=== PATIENT | female | born 2000 | race Caucasian/White ===

== ENCOUNTER 2018-05-06 18:20 | Emergency (ER) | payer OTHER | END 2018-05-06 19:23 | disposition home or self-care (01) | LOC: M ED 18:20 | DX: L65.8 Other specified nonscarring hair loss (principal); L23.89 Allergic contact dermatitis due to other agents; F41.9 Anxiety disorder, unspecified; Z79.899 Other long term (current) drug therapy | CPT/HCPCS: 99282 ==

== ENCOUNTER 2018-05-08 02:14 | Inpatient (IN) | payer OTHER ==
[2018-05-08 02:37] LABS: BEDSIDE GLUCOSE 89 MG/DL (70-105)
[2018-05-08 02:39] LABS: BASO % 0.5 % (0.0-1.0); EOS # 0.1 10^3/uL (0.0-0.50); HEMATOCRIT 43.5 % (36.0-47.0); HEMOGLOBIN 14.4 g/dl (12.0-15.5); IMMATURE GRANULOCYTE % 0.4 % (0-3.0); LYMPH # 1.5 10^3/uL (1.5-6.5); LYMPH % 17.8 % (24.0-44.0); MEAN CORPUSCULAR HEMOGLOBIN 30.1 pg (27.0-33.0); MEAN CORPUSCULAR HGB CONC 33.1 g/dl (32.0-36.5); MEAN CORPUSCULAR VOLUME 90.8 fl (80.0-96.0); MONO # 0.6 10^3/uL (0.0-0.8); MONO % 7.5 % (0.0-5.0); NEUTROPHILS % 72.8 % (36.0-66.0); PLATELET COUNT, AUTOMATED 313 10^3/uL (150-450); RED BLOOD COUNT 4.79 10^6/uL (4.00-5.40); RED CELL DISTRIBUTION WIDTH 12.2 % (11.5-14.5); WHITE BLOOD COUNT 8.3 10^3/uL (4.0-10.0)
[2018-05-08 03:01] LABS: ABG HCO3 23.3 MEQ/L (22.0-26.0); ABG O2 SATURATION 98.5 % (95.0-99.0); ABG PARTIAL PRESSURE O2 106.6 mmHg (75.0-100.0); ABG STANDARD HCO3 24.5 MEQ/L (22.0-26.0); ABG TOTAL CO2 24.3 MEQ/L (22.0-29.0); ABG pH (ARTERIAL) 7.453 UNITS (7.350-7.450); CONTROL LINE HCG INT CTR LINE PRESENT; HCG, SERUM QUALITATIVE NEGATIVE (NEGATIVE)
[2018-05-08 03:10] LABS: OSMOLALITY SERUM 292 MOSM/KG (275-295)
[2018-05-08 03:24] LABS: ALBUMIN 4.9 GM/DL (3.2-5.2); ALBUMIN/GLOBULIN RATIO 1.63 (1.00-1.93); ALKALINE PHOSPHATASE 57 U/L (45-117); ALT/SGPT 14 U/L (12-78); ANION GAP 10 MEQ/L (8-16); AST/SGOT 17 U/L (7-37); BILIRUBIN,DIRECT < 0.1 MG/DL (0.0-0.2); BILIRUBIN,TOTAL 2.8 MG/DL (0.2-1.0); BLOOD UREA NITROGEN 15 MG/DL (7-18); CALCIUM LEVEL 8.2 MG/DL (8.5-10.1); CARBON DIOXIDE LEVEL 28 MEQ/L (21-32); CHLORIDE LEVEL 104 MEQ/L (98-107); CPK CREATINE PHOSPHOKINASE 137 U/L (26-192); CREATININE FOR GFR 0.93 MG/DL (0.55-1.30); GLUCOSE, FASTING 93 MG/DL (70-100); POTASSIUM SERUM 3.7 MEQ/L (3.5-5.1); SALICYLATE LEVEL < 1.7 MG/DL (5.0-30.0); SODIUM LEVEL 142 MEQ/L (136-145); TOTAL PROTEIN 7.9 GM/DL (6.4-8.2)
[2018-05-08 03:25] LABS: ACETAMINOPHEN LEVEL < 2.0 UG/ML (10.0-30.0); ETHYL ALCOHOL (ETHANOL) < 0.003 % (0.000-0.010)
[2018-05-08 04:17] LABS: AMPHETAMINES LEVEL URINE NEGATIVE (NEGATIVE); BARBITURATES URINE NEGATIVE (NEGATIVE); BENZODIAZEPINES URINE NEGATIVE (NEGATIVE); CANNABINOIDS URINE NEGATIVE (NEGATIVE); COCAINE METABOLITE URINE NEGATIVE (NEGATIVE); METHADONE URINE NEGATIVE (NEGATIVE); OPIATES URINE NEGATIVE (NEGATIVE); PHENCYCLIDINE URINE NEGATIVE (NEGATIVE)
[2018-05-08] MEDS: NS 1,000 ML IV ×3 (04:30→20:31)
[2018-05-08] MEDS: D5W/0.45% SODIUM CHLORIDE 1,000 ML IV (07:30)
[2018-05-08] MEDS: ENOXAPARIN 40 MG/0.4 ML SYRINGE (J1650) SC (12:30)
[2018-05-09 05:40] LABS: MEAN CORPUSCULAR HEMOGLOBIN 29.8 pg (27.0-33.0); MEAN CORPUSCULAR HGB CONC 32.2 g/dl (32.0-36.5); MEAN CORPUSCULAR VOLUME 92.5 fl (80.0-96.0); PLATELET COUNT, AUTOMATED 267 10^3/uL (150-450); RED BLOOD COUNT 3.89 10^6/uL (4.00-5.40); RED CELL DISTRIBUTION WIDTH 12.9 % (11.5-14.5); WHITE BLOOD COUNT 9.3 10^3/uL (4.0-10.0)
[2018-05-09 05:44] LABS: HEMOGLOBIN 11.6 g/dl (12.0-15.5)
[2018-05-09 06:05] LABS: ANION GAP 7 MEQ/L (8-16); BLOOD UREA NITROGEN 15 MG/DL (7-18); CARBON DIOXIDE LEVEL 25 MEQ/L (21-32); CHLORIDE LEVEL 113 MEQ/L (98-107); CREATININE FOR GFR 0.93 MG/DL (0.55-1.30); GLUCOSE, FASTING 75 MG/DL (70-100); MAGNESIUM LEVEL 2.2 MG/DL (1.4-2.0); POTASSIUM SERUM 3.9 MEQ/L (3.5-5.1); SODIUM LEVEL 145 MEQ/L (136-145)
[2018-05-09] MEDS: NS 1,000 ML IV ×2 (06:38→16:16)
[2018-05-09] MEDS: ENOXAPARIN 40 MG/0.4 ML SYRINGE (J1650) SC (08:55)
[2018-05-09] MEDS: ONDANSETRON 4MG/2ML VIAL (J2405) IV (09:06)
[2018-05-10] MEDS: NS 1,000 ML IV ×2 (02:19→11:36)
[2018-05-10 05:15] LABS: HEMATOCRIT 35.9 % (36.0-47.0); HEMOGLOBIN 11.5 g/dl (12.0-15.5); MEAN CORPUSCULAR VOLUME 93.7 fl (80.0-96.0); PLATELET COUNT, AUTOMATED 257 10^3/uL (150-450); RED BLOOD COUNT 3.83 10^6/uL (4.00-5.40); RED CELL DISTRIBUTION WIDTH 12.9 % (11.5-14.5); WHITE BLOOD COUNT 5.2 10^3/uL (4.0-10.0)
[2018-05-10 05:49] LABS: ANION GAP 4 MEQ/L (8-16); BLOOD UREA NITROGEN 12 MG/DL (7-18); CALCIUM LEVEL 7.9 MG/DL (8.5-10.1); CARBON DIOXIDE LEVEL 26 MEQ/L (21-32); CHLORIDE LEVEL 113 MEQ/L (98-107); CREATININE FOR GFR 0.85 MG/DL (0.55-1.30); GLUCOSE, FASTING 100 MG/DL (70-100); MAGNESIUM LEVEL 2.2 MG/DL (1.4-2.0); POTASSIUM SERUM 4.4 MEQ/L (3.5-5.1); SODIUM LEVEL 143 MEQ/L (136-145)
[2018-05-10] MEDS: ENOXAPARIN 40 MG/0.4 ML SYRINGE (J1650) SC (09:31)
[2018-05-11 05:17] LABS: HEMATOCRIT 37.3 % (36.0-47.0); HEMOGLOBIN 12.1 g/dl (12.0-15.5); MEAN CORPUSCULAR HEMOGLOBIN 29.5 pg (27.0-33.0); MEAN CORPUSCULAR HGB CONC 32.4 g/dl (32.0-36.5); PLATELET COUNT, AUTOMATED 288 10^3/uL (150-450); RED CELL DISTRIBUTION WIDTH 12.2 % (11.5-14.5); WHITE BLOOD COUNT 5.4 10^3/uL (4.0-10.0)
[2018-05-11 05:45] LABS: ANION GAP 7 MEQ/L (8-16); BLOOD UREA NITROGEN 10 MG/DL (7-18); CALCIUM LEVEL 8.5 MG/DL (8.5-10.1); CARBON DIOXIDE LEVEL 28 MEQ/L (21-32); CHLORIDE LEVEL 109 MEQ/L (98-107); CREATININE FOR GFR 0.75 MG/DL (0.55-1.30); GLUCOSE, FASTING 96 MG/DL (70-100); MAGNESIUM LEVEL 1.9 MG/DL (1.4-2.0); POTASSIUM SERUM 3.5 MEQ/L (3.5-5.1); SODIUM LEVEL 144 MEQ/L (136-145)
[2018-05-11] MEDS: ONDANSETRON 4MG/2ML VIAL (J2405) IV (07:46)
[2018-05-11] MEDS: ENOXAPARIN 40 MG/0.4 ML SYRINGE (J1650) SC (07:46)
[2018-05-11] MEDS ORDERED: MIRALAX *UNIT DOSE* 17GM PACKET PO (11:45)
[2018-05-11] MEDS: SENNA 8.6 MG TAB (SENOKOT) PO ×2 (12:09→20:50)
[2018-05-11 12:34] LABS: AMMONIA 20 uMOL/L (<32)
[2018-05-12 05:59] LABS: HEMATOCRIT 38.1 % (36.0-47.0); HEMOGLOBIN 12.3 g/dl (12.0-15.5); MEAN CORPUSCULAR HEMOGLOBIN 29.6 pg (27.0-33.0); MEAN CORPUSCULAR HGB CONC 32.3 g/dl (32.0-36.5); MEAN CORPUSCULAR VOLUME 91.6 fl (80.0-96.0); PLATELET COUNT, AUTOMATED 307 10^3/uL (150-450); RED BLOOD COUNT 4.16 10^6/uL (4.00-5.40); RED CELL DISTRIBUTION WIDTH 12.2 % (11.5-14.5); WHITE BLOOD COUNT 4.9 10^3/uL (4.0-10.0)
[2018-05-12 06:19] LABS: ANION GAP 6 MEQ/L (8-16); BLOOD UREA NITROGEN 14 MG/DL (7-18); CALCIUM LEVEL 8.4 MG/DL (8.5-10.1); CARBON DIOXIDE LEVEL 30 MEQ/L (21-32); CHLORIDE LEVEL 108 MEQ/L (98-107); GLUCOSE, FASTING 91 MG/DL (70-100); POTASSIUM SERUM 3.6 MEQ/L (3.5-5.1); SODIUM LEVEL 144 MEQ/L (136-145)
[2018-05-12] MEDS: SENNA 8.6 MG TAB (SENOKOT) PO (08:35)
[2018-05-12] MEDS: ENOXAPARIN 40 MG/0.4 ML SYRINGE (J1650) SC (08:36)
[2018-05-12] MEDS: ONDANSETRON 4MG/2ML VIAL (J2405) IV (12:47)
== END 2018-05-12 15:48 | DRG 918 ==
LOC: M ED 02:14 → M ED INP 10:53 → M PCU 12:02
DX: T39.312A Poisoning by propionic acid derivatives, intentional self-harm, initial encounter (principal); T43.292A Poisoning by other antidepressants, intentional self-harm, initial encounter; T65.892A Toxic effect of other specified substances, intentional self-harm, initial encounter

== ENCOUNTER 2018-05-12 15:57 | Inpatient (IN) | payer OTHER ==
[~2018-05-12 15:57] MED LIST: ACETAMINOPHEN TAB 650MG DOSE (2X325MG) PO; MAALOX 30 ML SUSP *UDC PO; MOM 30ML SUSPENSION UDC PO
[2018-05-13] MEDS ORDERED: hydrOXYzine 50 MG TAB PO (12:45)
[2018-05-13] MEDS: PILL CRUSHER/CUTTER 1 EACH XX ×2 (13:15→21:27)
[2018-05-13] MEDS: ONDANSETRON 4 MG TAB (S0181) PO (13:15)
[2018-05-13] MEDS: FLUoxetine 10 MG CAP PO (13:57)
[2018-05-13] MEDS: traZODone 50 MG TAB PO (21:27)
[2018-05-14] MEDS: FLUoxetine 10 MG CAP PO (09:03)
[2018-05-15] MEDS: ONDANSETRON 4 MG TAB (S0181) PO (09:17)
[2018-05-15] MEDS: FLUoxetine 10 MG CAP PO (09:17)
[2018-05-16] MEDS: FLUoxetine 10 MG CAP PO (08:38)
[2018-05-16] MEDS: ONDANSETRON 4 MG TAB (S0181) PO (08:39)
[2018-05-17] MEDS: FLUoxetine 10 MG CAP PO (09:01)
[2018-05-17] MEDS ORDERED: DOCUSATE SODIUM 100 MG CAP PO (13:00)
[2018-05-18] MEDS: FLUoxetine 20 MG CAP PO (09:35)
[2018-05-19] MEDS: FLUoxetine 20 MG CAP PO (09:30)
[2018-05-20] MEDS: FLUoxetine 10 MG CAP PO (08:18)
[2018-05-20] MEDS: traZODone 50 MG TAB PO (21:34)
[2018-05-21] MEDS: FLUoxetine 10 MG CAP PO (08:30)
[2018-05-21] MEDS: traZODone 50 MG TAB PO (20:59)
[2018-05-22] MEDS: FLUoxetine 10 MG CAP PO (09:37)
[2018-05-23] MEDS: FLUoxetine 10 MG CAP PO (04:38)
== END 2018-05-23 05:23 | DRG 885 ==
LOC: M PSY 15:57
DX: F32.3 Major depressive disorder, single episode, severe with psychotic features (principal)

== ENCOUNTER 2018-06-22 16:51 | Inpatient (IN) | payer OTHER ==
[2018-06-22 18:29] LABS: HEMATOCRIT 39.8 % (36.0-47.0); HEMOGLOBIN 13.1 g/dl (12.0-15.5); MEAN CORPUSCULAR HEMOGLOBIN 30.3 pg (27.0-33.0); MEAN CORPUSCULAR HGB CONC 32.9 g/dl (32.0-36.5); MEAN CORPUSCULAR VOLUME 91.9 fl (80.0-96.0); PLATELET COUNT, AUTOMATED 366 10^3/uL (150-450); RED BLOOD COUNT 4.33 10^6/uL (4.00-5.40); RED CELL DISTRIBUTION WIDTH 12.6 % (11.5-14.5); WHITE BLOOD COUNT 9.8 10^3/uL (4.0-10.0)
[2018-06-22 18:51] LABS: CONTROL LINE HCG INT CTR LINE PRESENT; HCG, SERUM QUALITATIVE NEGATIVE (NEGATIVE)
[2018-06-22 19:00] LABS: ACETAMINOPHEN LEVEL < 2.0 UG/ML (10.0-30.0); ALBUMIN 4.2 GM/DL (3.2-5.2); ALBUMIN/GLOBULIN RATIO 1.31 (1.00-1.93); ALKALINE PHOSPHATASE 50 U/L (45-117); ALT/SGPT 29 U/L (12-78); ANION GAP 10 MEQ/L (8-16); AST/SGOT 21 U/L (7-37); BILIRUBIN,DIRECT 0.1 MG/DL (0.0-0.2); BILIRUBIN,TOTAL 0.5 MG/DL (0.2-1.0); BLOOD UREA NITROGEN 17 MG/DL (7-18); CARBON DIOXIDE LEVEL 25 MEQ/L (21-32); CHLORIDE LEVEL 106 MEQ/L (98-107); CREATININE FOR GFR 0.86 MG/DL (0.55-1.30); ETHYL ALCOHOL (ETHANOL) < 0.003 % (0.000-0.010); GLUCOSE, FASTING 95 MG/DL (70-100); SALICYLATE LEVEL < 1.7 MG/DL (5.0-30.0); SODIUM LEVEL 141 MEQ/L (136-145); THYROID STIMULATING HORMONE 0.509 uIU/ML (0.463-3.98); TOTAL PROTEIN 7.4 GM/DL (6.4-8.2)
[2018-06-22] MEDS: traZODone 50 MG TAB PO (20:35)
[2018-06-22 20:51] LABS: AMPHETAMINES LEVEL URINE NEGATIVE (NEGATIVE); BARBITURATES URINE NEGATIVE (NEGATIVE); BENZODIAZEPINES URINE NEGATIVE (NEGATIVE); CANNABINOIDS URINE NEGATIVE (NEGATIVE); COCAINE METABOLITE URINE NEGATIVE (NEGATIVE); METHADONE URINE NEGATIVE (NEGATIVE); OPIATES URINE NEGATIVE (NEGATIVE); PHENCYCLIDINE URINE NEGATIVE (NEGATIVE)
[2018-06-22] MEDS ORDERED: ACETAMINOPHEN TAB 650MG DOSE (2X325MG) PO (21:45)
[2018-06-22] MEDS ORDERED: MAALOX 30 ML SUSP *UDC PO (21:45)
[2018-06-22] MEDS ORDERED: MOM 30ML SUSPENSION UDC PO (21:45)
[2018-06-23] MEDS ORDERED: PILL CRUSHER/CUTTER 1 EACH XX (11:45)
[2018-06-23] MEDS: ESCITALOPRAM OXALATE 10 MG TAB (LEXAPRO) PO (22:04)
[2018-06-23] MEDS: ARIPiprazole 15 MG TAB (AbiLIFY) PO (22:04)
[2018-06-24] MEDS: ESCITALOPRAM OXALATE 10 MG TAB (LEXAPRO) PO (21:08)
[2018-06-24] MEDS: ARIPiprazole 15 MG TAB (AbiLIFY) PO (21:08)
[2018-06-24] MEDS: traZODone 50 MG TAB PO (21:09)
[2018-06-25] MEDS: ARIPiprazole 15 MG TAB (AbiLIFY) PO (21:00)
[2018-06-25] MEDS: ESCITALOPRAM OXALATE 10 MG TAB (LEXAPRO) PO (21:00)
[2018-06-26] MEDS: traZODone 50 MG TAB PO (20:33)
[2018-06-26] MEDS: ESCITALOPRAM OXALATE 10 MG TAB (LEXAPRO) PO (20:34)
[2018-06-26] MEDS: ARIPiprazole 15 MG TAB (AbiLIFY) PO (20:34)
[2018-06-27] MEDS: ARIPiprazole 15 MG TAB (AbiLIFY) PO (20:25)
[2018-06-27] MEDS: traZODone 50 MG TAB PO (20:25)
[2018-06-27] MEDS: ESCITALOPRAM OXALATE 10 MG TAB (LEXAPRO) PO (20:25)
[2018-06-28] MEDS: ARIPiprazole 15 MG TAB (AbiLIFY) PO (20:21)
[2018-06-28] MEDS: traZODone 50 MG TAB PO (20:22)
[2018-06-28] MEDS: ESCITALOPRAM OXALATE 10 MG TAB (LEXAPRO) PO (20:22)
[2018-06-29] MEDS: ESCITALOPRAM OXALATE 10 MG TAB (LEXAPRO) PO (21:33)
[2018-06-29] MEDS: traZODone 50 MG TAB PO (21:33)
[2018-06-29] MEDS: ARIPiprazole 15 MG TAB (AbiLIFY) PO (21:34)
[2018-06-30] MEDS ORDERED: hydrOXYzine 10 MG TAB PO (12:45)
[2018-06-30] MEDS: ESCITALOPRAM OXALATE 10 MG TAB (LEXAPRO) PO (20:12)
[2018-06-30] MEDS: traZODone 50 MG TAB PO (20:12)
[2018-06-30] MEDS: ARIPiprazole 10 MG TAB PO (20:12)
[2018-07-01] MEDS: ARIPiprazole 10 MG TAB PO (20:34)
[2018-07-01] MEDS: traZODone 50 MG TAB PO (20:34)
[2018-07-01] MEDS: ESCITALOPRAM OXALATE 10 MG TAB (LEXAPRO) PO (20:35)
[2018-07-02] MEDS: ESCITALOPRAM OXALATE 10 MG TAB (LEXAPRO) PO (20:26)
[2018-07-02] MEDS: ARIPiprazole 10 MG TAB PO (20:26)
[2018-07-02] MEDS: traZODone 50 MG TAB PO (20:26)
[2018-07-03] MEDS: ESCITALOPRAM OXALATE 10 MG TAB (LEXAPRO) PO (21:21)
[2018-07-03] MEDS: ARIPiprazole 10 MG TAB PO (21:21)
== END 2018-07-04 07:00 | disposition home or self-care (01) | DRG 885 ==
LOC: M PSY 06-26 22:07 → M ED 16:51 → M ED INP 21:34 → M PSY 22:47
DX: F33.3 Major depressive disorder, recurrent, severe with psychotic symptoms (principal); R45.851 Suicidal ideations; F41.9 Anxiety disorder, unspecified; G47.00 Insomnia, unspecified; Z79.899 Other long term (current) drug therapy

== ENCOUNTER 2018-10-01 22:08 | Inpatient (IN) | payer OTHER ==
[~2018-10-01] VITALS: Ht 165.1 cm; Wt 79.8 kg
[~2018-10-01 22:08] MED LIST changes: +ABIL1TAB11 PO; -ACETAMINOPHEN TAB 650MG DOSE (2X325MG) PO; +ARIP10TAB PO; +ARIP5TA PO; +CYPR4TA PO; +ESCI5SOL3 PO; +HYDR5CR TOP; +HYDRO50TAB PO; +LEXA1TAB PO; +LEXA1TAB2 PO; -MAALOX 30 ML SUSP *UDC PO; -MOM 30ML SUSPENSION UDC PO; +ONDA4TAB5 PO; +PROZ10CA7 PO; +TRAZ-160 PO; +TRAZO50TA PO
[2018-10-01] MEDS ORDERED: TRAZ-160 PO (22:17)
[2018-10-01 23:21] LABS: HEMOGLOBIN 13.1 g/dl (12.0-15.5); MEAN CORPUSCULAR HGB CONC 32.8 g/dl (32.0-36.5); MEAN CORPUSCULAR VOLUME 91.5 fl (80.0-96.0); PLATELET COUNT, AUTOMATED 323 10^3/uL (150-450); RED BLOOD COUNT 4.37 10^6/uL (4.00-5.40); WHITE BLOOD COUNT 9.2 10^3/uL (4.0-10.0)
[2018-10-02 00:10] LABS: ACETAMINOPHEN LEVEL < 2.0 UG/ML (10.0-30.0); ALBUMIN 3.9 GM/DL (3.2-5.2); ALT/SGPT 32 U/L (12-78); BILIRUBIN,DIRECT < 0.1 MG/DL (0.0-0.2); BILIRUBIN,TOTAL 0.2 MG/DL (0.2-1.0); BLOOD UREA NITROGEN 14 MG/DL (7-18); CALCIUM LEVEL 8.5 MG/DL (8.5-10.1); CARBON DIOXIDE LEVEL 28 MEQ/L (21-32); CHLORIDE LEVEL 103 MEQ/L (98-107); CREATININE FOR GFR 0.83 MG/DL (0.55-1.30); ETHYL ALCOHOL (ETHANOL) < 0.003 % (0.000-0.010); GLUCOSE, FASTING 122 MG/DL (70-100); POTASSIUM SERUM 4.3 MEQ/L (3.5-5.1); SALICYLATE LEVEL < 1.7 MG/DL (5.0-30.0); SODIUM LEVEL 139 MEQ/L (136-145); TOTAL PROTEIN 7.2 GM/DL (6.4-8.2)
[2018-10-02 00:13] LABS: HCG, SERUM QUALITATIVE NEGATIVE (NEGATIVE)
[2018-10-02 02:29] LABS: AMPHETAMINES LEVEL URINE NEGATIVE (NEGATIVE); BARBITURATES URINE NEGATIVE (NEGATIVE); BENZODIAZEPINES URINE NEGATIVE (NEGATIVE); CANNABINOIDS URINE NEGATIVE (NEGATIVE); COCAINE METABOLITE URINE NEGATIVE (NEGATIVE); METHADONE URINE NEGATIVE (NEGATIVE); OPIATES URINE NEGATIVE (NEGATIVE); PHENCYCLIDINE URINE NEGATIVE (NEGATIVE)
[2018-10-02] MEDS ORDERED: ESCI20TA PO (11:28)
[2018-10-02] MEDS ORDERED: ARIP1TAB PO (11:28)
[2018-10-02] MEDS ORDERED: TRAZ-160 PO (11:28)
[2018-10-02] MEDS ORDERED: MOM 30ML SUSPENSION UDC PO PRN (12:15)
[2018-10-02] MEDS ORDERED: MAALOX 30 ML SUSP *UDC PO PRN (12:15)
[2018-10-02] MEDS ORDERED: ACETAMINOPHEN TAB 650MG DOSE (2X325MG) PO PRN (12:15)
[2018-10-02 13:06] VITALS: BP 109/62
[2018-10-02 18:00] VITALS: BP 101/55
[2018-10-02] MEDS ORDERED: ESCITALOPRAM OXALATE 10 MG TAB (LEXAPRO) PO SCH (21:00)
[2018-10-02] MEDS ORDERED: traZODone 50 MG TAB PO SCH (21:00)
[2018-10-02] MEDS ORDERED: ARIPiprazole 10 MG TAB PO SCH (21:00)
--- NOTE | 2018-10-02 21:50 | ECGEPIP ---
Stationary ECG Study [facility] - ED Test Date: 2018-10-01 Pat Name: SOSA KEMP Department: Room: - Gender: F Pediatric Associate: FARZAD : 2000 Requested By: CHANDU Otto Order Number: [id number] Reading MD: Satya Kong Measurements Intervals [place] Rate: 68 P: 32 OK: 154 QRS: 72 QRSD: 110 T: 24 QT: 401 QTc: 428 Interpretive Statements SINUS RHYTHM WITH SINUS ARRHYTHMIA Intraventricular conduction delay Electronically Signed On 10-02-2018 21:49:58 EDT by Satya Kong
[2018-10-03 06:13] VITALS: BP 100/57
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
[2018-10-03] MEDS ORDERED: diphenhydrAMINE 25 MG CAP PO PRN (12:15)
[2018-10-03 18:00] VITALS: BP 116/71
[2018-10-03] MEDS: ARIPiprazole 15 MG TAB (AbiLIFY) PO SCH (21:35)
[2018-10-03] MEDS: ESCITALOPRAM OXALATE 10 MG TAB (LEXAPRO) PO SCH (21:36)
[2018-10-04 06:00] VITALS: BP 103/60
--- NOTE | 2018-10-04 10:42 | MHIPNPDOC ---
[facility] Progress Note Progress Note DATE OF SERVICE: 10/04/18 HISTORY: Patient is a 18 -year-old , AD, female, with a history of depression and multiple admissions to [facility] (last 06/2018) for SI or OD who was brought in by EMS after pt took 4 50mg tabs of trazodone then called her mother in [place] who told her to tell her roommate which she did and her roommate called [facility] that had pt brought to ED. In pt's room, MPs had found scattered tylenol tabs which pt denied taking. In ED, pt endorsed depression and SI for 1 wk, no known triggers, with a plan to also take "a cup of tylenol pills, about 50" but didn't b/c she got scared. Pt guarded in the ED and tearful. VITAL SIGNS: See below. NEW TEST RESULTS: See below. CURRENT MEDICATIONS: See below. MENTAL STATUS EXAMINATION: General Appearance: well groomed, appears stated age, own clothing Build: average Demeanor: average Eye Contact: fair Activity: average Behavior: cooperative, withdrawn, possibly being unreliable and manipulative for early d/c Speech: clear,normal volume Mood: depressed, anxious Mood "great" Affect: constricted, flat, anxious, incongruent Thought Process: depressed, intact Thought Content (Delusions): none reported, denies SI, HI, AVH, history of impulsive SA's Thought Content (Other): none reported, appropriate Thought Content (Aggressive): none reported Perception (Hallucinations): none reported Perception (Other): none reported Cognition (Impairment of): none reported Cognition(Intelligence Est.): average Oriented: Awake, Alert, Oriented times three Insight: poor Judgment: Poor Psychosis: Denies DIAGNOSES: Major depressive disorder without psychotic features. borderline personality d/o ASSESSMENT:Pt seen and states she's feels "great" and doesn't know exactly why that is just woke up feeling that way. Pt does not appear as if her mood is 'great' though as she remains flat and constricted. Pt possibly manipulating to be discharged home. Pt also has a risk for impulsive suicide as all her SA in the past have been impulsive and will not tell anyone just do it then maybe say something. States she tolerating her medications and feels it's beneficial. Is attending groups and finding helpful. Denies SI but not very reliable due to history of impulsive SA's. Denies HI, hallucinations, delusions. Feels safe here. Per treatment team is currently being med boarded out for the for mental health. MANAGEMENT PLAN: continue plan Medications: abilify 15mg qhs lexapro 30mg qhs benadryl 25mg qhs prn sleep. TIME SPENT: 30 minutes. Vital Signs Vital Signs Date Time Temp Pulse Resp B/P (MAP) Pulse Ox O2 Delivery O2 Flow Rate FiO2 10/04/18 08:38 Room Air 10/04/18 06:00 97.4 87 12 103/60 (74) 10/02/18 12:25 96 Current Medications Current Medications Acetaminophen (Tylenol Tab) 650 mg Q6HP PRN PO HEADACHE or DISCOMFORT; Start 10/02/18 at 12:15 Al Hydrox/Mg Hydrox/Simethicone (Mylanta) 30 ml Q4HP PRN PO HEARTBURN/INDIGESTION; Start 10/02/18 at 12:15 Aripiprazole (AbiLIFY) 10 mg QHS PO Last administered on 10/02/18at 20:57; Start 10/02/18 at 21:00; Stop 10/03/18 at 12:15; Status DC Aripiprazole (AbiLIFY) 15 mg QHS PO Last administered on 10/03/18at 21:35; Start 10/03/18 at 21:00 Diphenhydramine HCl (Benadryl) 25 mg QHSP PRN PO INSOMNIA; Start 10/03/18 at 12:15 Escitalopram Oxalate (Lexapro) 20 mg QHS PO Last administered on 10/02/18at 20:57; Start 10/02/18 at 21:00; Stop 10/03/18 at 12:15; Status DC Escitalopram Oxalate (Lexapro) 30 mg QHS PO Last administered on 10/03/18at 21:36; Start 10/03/18 at 21:00 Home Med (Med Rec Complete!) ASDIRECTED XX ; Start 10/02/18 at 11:30; Stop 10/02/18 at 11:33; Status DC Magnesium Hydroxide (Milk Of Magnesia) 30 ml DAILYPRN PRN PO CONSTIPATION; Start 10/02/18 at 12:15 Trazodone HCl (Desyrel) 50 mg QHS PO Last administered on 10/02/18at 20:57; Start 10/02/18 at 21:00; Stop 10/03/18 at 12:15; Status DC Allergies Coded Allergies: No Known Allergies (Unverified , 05/08/18) WINNIE MILLER DO Oct 04, 2018 10:42
[2018-10-04 18:10] VITALS: BP 113/58
[2018-10-04] MEDS: ESCITALOPRAM OXALATE 10 MG TAB (LEXAPRO) PO SCH (21:26)
[2018-10-04] MEDS: ARIPiprazole 15 MG TAB (AbiLIFY) PO SCH (21:26)
[2018-10-05 06:29] VITALS: BP 114/63
--- NOTE | 2018-10-05 09:53 | MHIPNPDOC ---
[facility] Progress Note Progress Note DATE OF SERVICE: 10/05/18 HISTORY: Patient is a 18 -year-old , AD, female, with a history of depression and multiple admissions to [facility] (last 06/2018) for SI or OD who was brought in by EMS after pt took 4 50mg tabs of trazodone then called her mother in [place] who told her to tell her roommate which she did and her roommate called [facility] that had pt brought to ED. In pt's room, MPs had found scattered tylenol tabs which pt denied taking. In ED, pt endorsed depression and SI for 1 wk, no known triggers, with a plan to also take "a cup of tylenol pills, about 50" but didn't b/c she got scared. Pt guarded in the ED and tearful. VITAL SIGNS: See below. NEW TEST RESULTS: See below. CURRENT MEDICATIONS: See below. MENTAL STATUS EXAMINATION: General Appearance: well groomed, appears stated age, own clothing Build: average Demeanor: average Eye Contact: fair Activity: average Behavior: cooperative, less withdrawn Speech: clear,normal volume Mood: depressed, anxious Mood "better" Affect: constricted, flat, anxious, incongruent Thought Process: depressed, intact Thought Content (Delusions): none reported, denies SI, HI, AVH, history of impulsive SA's Thought Content (Other): none reported, appropriate Thought Content (Aggressive): none reported Perception (Hallucinations): none reported Perception (Other): none reported Cognition (Impairment of): none reported Cognition(Intelligence Est.): average Oriented: Awake, Alert, Oriented times three Insight: improving Judgment: Poor Psychosis: Denies DIAGNOSES: Major depressive disorder without psychotic features. borderline personality d/o ASSESSMENT:Pt seen and states she's feels "better" as she's finding socializing in the milieu and attending groups beneficial. Asked pt about her symptoms and states she's notices that she's very impulsive (which pt it) and discussed CBT tactics of working on positive thoughts of things she enjoy's in her life ("shopping, talking to my family") to practise thinking of so that when she has spontaneous thoughts to harm herself she can combat with positive thoughts to prevent herself from acting on the them. States she will practise and encouraged to write a list she can read during times of need. Pt remains flat and constricted although less than previous. Pt possibly manipulating to be discharged home. States she tolerating her medications and feels it's beneficial. Is attending groups and finding helpful. Denies SI but not very reliable due to history of impulsive SA's. Denies HI, hallucinations, delusions. Insight appears to be improving. Feels safe here. Per treatment team is currently being med boarded out for the for mental health. MANAGEMENT PLAN: continue plan Medications: abilify 15mg qhs lexapro 30mg qhs benadryl 25mg qhs prn sleep. TIME SPENT: 30 minutes. Vital Signs Vital Signs Date Time Temp Pulse Resp B/P (MAP) Pulse Ox O2 Delivery O2 Flow Rate FiO2 10/05/18 06:29 97.3 65 14 114/63 (80) 10/04/18 08:38 Room Air 10/02/18 12:25 96 Current Medications Current Medications Acetaminophen (Tylenol Tab) 650 mg Q6HP PRN PO HEADACHE or DISCOMFORT; Start 10/02/18 at 12:15 Al Hydrox/Mg Hydrox/Simethicone (Mylanta) 30 ml Q4HP PRN PO HEARTBURN/INDIGESTION; Start 10/02/18 at 12:15 Aripiprazole (AbiLIFY) 10 mg QHS PO Last administered on 10/02/18at 20:57; Start 10/02/18 at 21:00; Stop 10/03/18 at 12:15; Status DC Aripiprazole (AbiLIFY) 15 mg QHS PO Last administered on 10/04/18at 21:26; Start 10/03/18 at 21:00 Diphenhydramine HCl (Benadryl) 25 mg QHSP PRN PO INSOMNIA; Start 10/03/18 at 12:15 Escitalopram Oxalate (Lexapro) 20 mg QHS PO Last administered on 10/02/18at 20:57; Start 10/02/18 at 21:00; Stop 10/03/18 at 12:15; Status DC Escitalopram Oxalate (Lexapro) 30 mg QHS PO Last administered on 10/04/18at 21:26; Start 10/03/18 at 21:00 Home Med (Med Rec Complete!) ASDIRECTED XX ; Start 10/02/18 at 11:30; Stop 10/02/18 at 11:33; Status DC Magnesium Hydroxide (Milk Of Magnesia) 30 ml DAILYPRN PRN PO CONSTIPATION; Start 10/02/18 at 12:15 Trazodone HCl (Desyrel) 50 mg QHS PO Last administered on 10/02/18at 20:57; Start 10/02/18 at 21:00; Stop 10/03/18 at 12:15; Status DC Allergies Coded Allergies: No Known Allergies (Unverified , 05/08/18) WINNIE MILLER DO Oct 05, 2018 09:53
[2018-10-05 18:00] VITALS: BP 113/60
[2018-10-05] MEDS: ARIPiprazole 15 MG TAB (AbiLIFY) PO SCH (21:26)
[2018-10-05] MEDS: ESCITALOPRAM OXALATE 10 MG TAB (LEXAPRO) PO SCH (21:26)
[2018-10-06 06:18] VITALS: BP 115/58
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
[2018-10-06 18:00] VITALS: BP 110/60
[2018-10-06] MEDS: ARIPiprazole 15 MG TAB (AbiLIFY) PO SCH (21:22)
[2018-10-06] MEDS: ESCITALOPRAM OXALATE 10 MG TAB (LEXAPRO) PO SCH (21:22)
[2018-10-07 06:00] VITALS: BP 114/60
[2018-10-07 18:11] VITALS: BP 113/58
[2018-10-07] MEDS: ESCITALOPRAM OXALATE 10 MG TAB (LEXAPRO) PO SCH (20:54)
[2018-10-07] MEDS: ARIPiprazole 15 MG TAB (AbiLIFY) PO SCH (20:54)
[2018-10-08 06:50] VITALS: BP 93/55
[2018-10-08 18:01] VITALS: BP 132/76
[2018-10-08] MEDS: ARIPiprazole 15 MG TAB (AbiLIFY) PO SCH (20:58)
[2018-10-08] MEDS: ESCITALOPRAM OXALATE 10 MG TAB (LEXAPRO) PO SCH (20:59)
[2018-10-09 06:34] VITALS: BP 108/65
--- NOTE | 2018-10-09 10:22 | MHIPNPDOC ---
[facility] Progress Note Progress Note DATE OF SERVICE: 10/09/18 HISTORY: Patient is a 18 -year-old , AD, female, with a history of depression and multiple admissions to [facility] (last 06/2018) for SI or OD who was brought in by EMS after pt took 4 50mg tabs of trazodone then called her mother in [place] who told her to tell her roommate which she did and her roommate called MPs that had pt brought to ED. In pt's room, MPs had found scattered tylenol tabs which pt denied taking. In ED, pt endorsed depression and SI for 1 wk, no known triggers, with a plan to also take "a cup of tylenol pills, about 50" but didn't b/c she got scared. Pt guarded in the ED and tearful. VITAL SIGNS: See below. NEW TEST RESULTS: See below. CURRENT MEDICATIONS: See below. MENTAL STATUS EXAMINATION: General Appearance: well groomed, appears stated age, own clothing Build: average Demeanor: average Eye Contact: good Activity: average Behavior: cooperative Speech: clear,normal volume Mood: less depressed, anxious Mood "better" Affect: less constricted, flat, anxious, congruent Thought Process: depressed, intact Thought Content (Delusions): none reported, denies SI, HI, AVH, history of impulsive SA's Thought Content (Other): none reported, appropriate Thought Content (Aggressive): none reported Perception (Hallucinations): none reported Perception (Other): none reported Cognition (Impairment of): none reported Cognition(Intelligence Est.): average Oriented: Awake, Alert, Oriented times three Insight: improving Judgment: Poor Psychosis: Denies DIAGNOSES: Major depressive disorder without psychotic features. borderline personality d/o ASSESSMENT:Pt seen and states she's feels "alright and continues to socialize in the milieu and attending groups that she feels is beneficial. Continues to work on coping skills for impulsive thoughts to harm self. Denies thoughts to harm self and SI today with CBT techniques discussed last week. Is working on her impulse control with therapeutic coping skills and feels it's beneficial. States she tolerating her medications and feels it's beneficial. Is attending groups and finding helpful. Denies SI. Denies HI, hallucinations, delusions. Insight appears to be improving. Feels safe here. Per treatment team is currently being med boarded out for the [facility] for mental health. MANAGEMENT PLAN: continue plan Medications: abilify 15mg qhs lexapro 30mg qhs benadryl 25mg qhs prn sleep. TIME SPENT: 30 minutes. Vital Signs Vital Signs Date Time Temp Pulse Resp B/P (MAP) Pulse Ox O2 Delivery O2 Flow Rate FiO2 10/09/18 06:34 97.5 107 20 108/65 (79) 10/04/18 08:38 Room Air Current Medications Current Medications Acetaminophen (Tylenol Tab) 650 mg Q6HP PRN PO HEADACHE or DISCOMFORT; Start 10/02/18 at 12:15 Al Hydrox/Mg Hydrox/Simethicone (Mylanta) 30 ml Q4HP PRN PO HEARTBURN/INDIGESTION; Start 10/02/18 at 12:15 Aripiprazole (AbiLIFY) 10 mg QHS PO Last administered on 10/02/18at 20:57; Start 10/02/18 at 21:00; Stop 10/03/18 at 12:15; Status DC Aripiprazole (AbiLIFY) 15 mg QHS PO Last administered on 10/08/18at 20:58; Start 10/03/18 at 21:00 Diphenhydramine HCl (Benadryl) 25 mg QHSP PRN PO INSOMNIA; Start 10/03/18 at 12:15 Escitalopram Oxalate (Lexapro) 20 mg QHS PO Last administered on 10/02/18at 20:57; Start 10/02/18 at 21:00; Stop 10/03/18 at 12:15; Status DC Escitalopram Oxalate (Lexapro) 30 mg QHS PO Last administered on 10/08/18at 20:59; Start 10/03/18 at 21:00 Home Med (Med Rec Complete!) ASDIRECTED XX ; Start 10/02/18 at 11:30; Stop 10/02/18 at 11:33; Status DC Magnesium Hydroxide (Milk Of Magnesia) 30 ml DAILYPRN PRN PO CONSTIPATION; Start 10/02/18 at 12:15 Trazodone HCl (Desyrel) 50 mg QHS PO Last administered on 10/02/18at 20:57; Start 10/02/18 at 21:00; Stop 10/03/18 at 12:15; Status DC Allergies Coded Allergies: No Known Allergies (Unverified , 05/08/18) WINNIE MILLER DO Oct 09, 2018 10:22
[2018-10-09 18:51] VITALS: BP 111/60
[2018-10-09] MEDS: ARIPiprazole 15 MG TAB (AbiLIFY) PO SCH (20:11)
[2018-10-09] MEDS: ESCITALOPRAM OXALATE 10 MG TAB (LEXAPRO) PO SCH (20:11)
[2018-10-10 06:53] VITALS: BP 106/59
--- NOTE | 2018-10-10 09:01 | MHDSPDOC ---
[facility] Discharge Summary Discharge Summary DATE OF ADMISSION: Oct 02, 2018 at 12:14 DATE OF DISCHARGE: Oct 10, 2018 DISCHARGE DIAGNOSES: Major depressive disorder without psychotic features. borderline personality d/o REASON FOR ADMISSION: Patient is a 18 -year-old , AD, female, with a history of depression and multiple admissions to [facility] (last 06/2018) for SI or OD who was brought in by EMS after pt took 4 50mg tabs of trazodone then called her mother in [place] who told her to tell her roommate which she did and her roommate called [facility] that had pt brought to ED. In pt's room, MPs had found scattered tylenol tabs which pt denied taking. In ED, pt endorsed depression and SI for 1 wk, no known triggers, with a plan to also take "a cup of tylenol pills, about 50" but didn't b/c she got scared. Pt guarded in the ED and tea rful. CONSULTANTS INVOLVED: none TREATMENT AND PROGRESS ON THE UNIT : Pt was admitted to [facility], seen for psychiatric assessment and restarted on her outpatient meds of abilify increased to 15mg qhs, lexapro increased to 30mg qhs that she tolerating well and found beneficial. She was provided benadryl 25mg qhs prn insomnia. Pt found her medications beneficial and tolerated them well. She attended groups daily during her stay. Her symptoms improved with treatment. On day of discharge she denied depression, anxiety, insomnia, SI/HI, hallucinations, delusions. She was discharged home after meeting with her [facility] with follow-up at [facility]. She felt safe for discharge. DISCHARGE ASSESSMENT: Pt seen and states she's feels "good" and is looking forward to going home with her [facility]is today. States she slept well last night. Her mood appears improved with euthymic affect. Continues to work on coping skills for impulsive thoughts to harm self that she is finding beneficial. Denies thoughts to harm self and SI today with CBT techniques discussed last week. Is working on her impulse control with therapeutic coping skills and feels it's beneficial. States she tolerating her medications and feels it's beneficial. Is attending groups and finding helpful. Denies depression, anxiety, insomnia, SI/HI, hallucinations, delusions. Feels safe to be discharged home with her [facility] today. MENTAL STATUS EXAMINATION ON DISCHARGE: General Appearance: well groomed, appears stated age, own clothing Build: average Demeanor: average Eye Contact: good Activity: average Behavior: cooperative Speech: clear,normal volume Mood: euthymic, full Mood "good" Affect: euthymic, full, congruent Thought Process: linear, logical, intact Thought Content (Delusions): none reported, denies SI, HI, AVH Thought Content (Other): none reported, appropriate Thought Content (Aggressive): none reported Perception (Hallucinations): none reported Perception (Other): none reported Cognition (Impairment of): none reported Cognition(Intelligence Est.): average Oriented: Awake, Alert, Oriented times three Insight: good Judgment: good-fair Psychosis: Denies MEDICATIONS ON DISCHARGE: abilify 15mg qhs lexapro 30mg qhs benadryl 25mg qhs prn sleep. PLAN/FOLLOWUP ARRANGEMENTS: d/c home with [facility] with follow-up at [facility]. The amount of time spent in the coordination of care for this patient was approximately 30 minutes. Vital Signs/I&Os Vital Signs Date Time Temp Pulse Resp B/P (MAP) Pulse Ox O2 Delivery O2 Flow Rate FiO2 10/10/18 06:53 97.9 62 14 106/59 (75) 10/04/18 08:38 Room Air Medications Scheduled Aripiprazole (Aripiprazole) 15 Mg Tab, 15 MG PO QHS for antidepressant augmentation, #10 Escitalopram Oxalate (Escitalopram Oxalate) 10 Mg Tab, 30 MG PO QHS for mood, #30 Scheduled PRN Diphenhydramine HCl (Diphenhydramine HCl) 25 Mg Cap, 25 MG PO QHSP PRN for INSOMNIA, #10 Allergies Coded Allergies: No Known Allergies (Unverified , 05/08/18) WINNIE MILLER DO Oct 10, 2018 09:01
[2018-10-10] MEDS ORDERED: ESCI10TA2 PO (09:04)
[2018-10-10] MEDS ORDERED: DIPH25CA PO (09:04)
[2018-10-10] MEDS ORDERED: ARIP15TAB PO (09:04)
== END 2018-10-10 10:00 | disposition home or self-care (01) | DRG 881 ==
LOC: M ED 22:08 → M ED INP 10-02 12:14 → M PSY 10-02 12:44
PROVIDERS: ADMIT Psychiatry & Neurology Psychiatry; ATTEND Psychiatry & Neurology Psychiatry
DX: F32.9 Major depressive disorder, single episode, unspecified (principal); F60.3 Borderline personality disorder; G47.00 Insomnia, unspecified; Z79.899 Other long term (current) drug therapy